=== PATIENT | female | born 1960 | race Caucasian/White ===

== ENCOUNTER 2020-05-15 11:43 | Outpatient (REF) | payer BC, SELFPAY ==
[2020-05-15 21:18] LABS: Calculated LDL 208 mg/dL (<100); Cholesterol 298 mg/dL (<200); HDL Cholesterol 55 mg/dL (40-60); Triglyceride 179 mg/dL (<150)
== END 2020-05-15 12:03 ==
LOC: NCHCN 11:43
PROVIDERS: PCP Family Medicine; Visit Provider Family Medicine
DX: Z00.00 Encounter for general adult medical examination without abnormal findings (principal); Z13.220 Encounter for screening for lipoid disorders
CPT/HCPCS: 80061

== ENCOUNTER 2020-05-26 16:31 | Outpatient (REF) | payer BC, SELFPAY ==
[2020-05-26 22:33] LABS: TSH (W/Ref FT4) 3.13 uIU/mL (0.36-3.74)
[2020-05-26 22:54] LABS: Hemoglobin A1C 5.4 % (3.8-5.6)
== END 2020-05-26 16:51 ==
LOC: NCHCN 16:31
PROVIDERS: PCP Family Medicine; Visit Provider Family Medicine
DX: Z83.49 Family history of other endocrine, nutritional and metabolic diseases (principal); Z13.29 Encounter for screening for other suspected endocrine disorder; Z13.220 Encounter for screening for lipoid disorders; Z13.1 Encounter for screening for diabetes mellitus
CPT/HCPCS: 83036; 84443

== ENCOUNTER 2020-10-02 13:54 | Outpatient (REF) | payer BC, SELFPAY ==
[2020-10-07 02:00] LABS: SARS-CoV-2 RNA Undetected (Undetected); SARS-CoV-2 Specimen Source Nasal
== END 2020-10-02 14:14 ==
LOC: NCHCN 13:54
PROVIDERS: PCP Family Medicine; Visit Provider Family Medicine
DX: Z20.828 Contact with and (suspected) exposure to other viral communicable diseases (principal)
CPT/HCPCS: U0003

== ENCOUNTER 2021-12-28 18:08 | Outpatient (REF) | payer BC, SELFPAY ==
--- NOTE | 2021-12-28 15:40 | PAPFT_PTH ---
PATIENT: Becka Bruce LOC: [facility] U#:[id number] AGE/SX: 61/F ROOM: RE12/28/[address]: Supriya Cordova : 1960 BED: DIS: 12/28/2021 SPEC #: [id number] RECD: 12/29/21 13:16 STATUS: MARCIA RESinai #: [id number] CORINNE: 12/28/21 15:[address]: Supriya Cordova DEPT: [facility] Cytology RECD BY: Kelley Gunn Tissues: 1 - CX/ENDOCX FOR PAP SMEARS Procedures: PAP THIN PREP/[facility] Screening HPV DNA PROBE Comments: [id number]
[2021-12-28 21:28] LABS: Calculated LDL 167 mg/dL (<100); Cholesterol 294 mg/dL (<200); HDL Cholesterol 59 mg/dL (40-60); Triglyceride 340 mg/dL (<150)
[2021-12-30 00:20] LABS: Vitamin D 25 Total 27.9 ng/mL (30-100)
== END 2021-12-28 18:09 | disposition home or self-care (01) ==
LOC: NCHCN 18:08
PROVIDERS: PCP Family Medicine; Visit Provider Family Medicine
DX: N92.0 Excessive and frequent menstruation with regular cycle (principal); Z13.220 Encounter for screening for lipoid disorders; Z12.4 Encounter for screening for malignant neoplasm of cervix; Z11.51 Encounter for screening for human papillomavirus (HPV)
CPT/HCPCS: 80061; 82306; 88142; 87624

== ENCOUNTER 2022-12-30 14:35 | Outpatient (REF) | payer BC, SELFPAY ==
--- NOTE | 2022-12-30 13:20 | SKI_PTH ---
PATIENT: Becka Bruce LOC: [facility] U#:[id number] AGE/SX: 62/F ROOM: RE12/30/[address]: Supriya Cordova : 1960 BED: DIS: 12/30/2022 SPEC #: [id number] RECD: 01/02/23 12:25 STATUS: MARCIA RESinai #: [id number] CORINNE: 12/30/22 13:[address]: Supriya Cordova DEPT: Surgical Specimen RECD BY: Kelley Gunn Tissues: 1 - SKIN BIOPSY(SHAVE/PUNCH) Procedures: SKIN LEVEL 4 Comments: [id number]
== END 2022-12-30 14:36 | disposition home or self-care (01) ==
LOC: NCHCN 14:35
PROVIDERS: PCP Family Medicine; Visit Provider Family Medicine
DX: L57.0 Actinic keratosis (principal)
CPT/HCPCS: 88305